=== PATIENT | male | born 1995 | race American Indian/Alaskan Native ===

== ENCOUNTER 2018-09-09 14:06 | Emergency (ER) | payer OTHER ==
[2018-09-09 14:22] VITALS: BP 125/71
--- NOTE | 2018-09-09 15:49 | Emergency Department Report ---
ED ENT HPI - General Chief complaint: Earache Stated complaint: LEFT EAR PAIN Time Seen by Provider: 09/09/18 15:44 Source: patient Mode of arrival: Ambulatory Limitations: No Limitations - History of Present Illness Initial comments: 23 y/o male reports of left ear pain for about a month now has gotten worst. Has taken nothing for pain. MD complaint: ear pain -: days(s) (3) Location: L ear Severity: moderate Quality: sharp Consistency: intermittent Improves with: none Worsens with: movement Associated Symptoms: denies: fever, cough, gum swelling, toothache, pain with swallowing, sore throat, discharge from ear, rhinorrhea - Related Data Previous Rx's Medication Instructions Recorded Last Taken Type Neomy/Polymyx B/Hc (Otic) Soln 4 drops AU TID #1 bottle 09/09/18 Unknown Rx [Cortisporin (Otic) Soln] Allergies Allergy/AdvReac Type Severity Reaction Status Date / Time No Known Allergies Allergy Verified 09/09/18 14:20 ED Dental HPI - General Chief complaint: Earache Stated complaint: LEFT EAR PAIN Time Seen by Provider: 09/09/18 15:44 Source: patient Mode of arrival: Ambulatory Limitations: No Limitations - Related Data Previous Rx's Medication Instructions Recorded Last Taken Type Neomy/Polymyx B/Hc (Otic) Soln 4 drops AU TID #1 bottle 09/09/18 Unknown Rx [Cortisporin (Otic) Soln] Allergies Allergy/AdvReac Type Severity Reaction Status Date / Time No Known Allergies Allergy Verified 09/09/18 14:20 ED Review of Systems ROS: Stated complaint: LEFT EAR PAIN Other details as noted in HPI Comment: All other systems reviewed and negative Constitutional: denies: chills, fever Eyes: denies: eye pain, eye discharge, vision change ENT: denies: ear pain, throat pain Respiratory: denies: cough, shortness of breath, wheezing ED Past Medical Hx - Past Medical History Previous Medical History?: No - Surgical History Past Surgical History?: No - Social History Smoking Status: Never Smoker Substance Use Type: Marijuana - Medications Home Medications: Home Medications Medication Instructions Recorded Confirmed Last Taken Type Neomy/Polymyx B/Hc (Otic) Soln 4 drops AU TID #1 bottle 09/09/18 Unknown Rx [Cortisporin (Otic) Soln] ED Physical Exam - General Limitations: No Limitations General appearance: alert, in no apparent distress - Head Head exam: Present: atraumatic, normocephalic - Eye Eye exam: Present: normal appearance - ENT ENT exam: Present: mucous membranes moist, TM's normal bilaterally - Expanded ENT Exam Expanded TM/Canal exam: Canal Discharge: Left TM, Canal Tenderness: Right TM (tragus tendernes, article pain with movement. ) - Neck Neck exam: Present: normal inspection - Neurological Exam Neurological exam: Present: alert, oriented X3 - Psychiatric Psychiatric exam: Present: normal affect, normal mood - Skin Skin exam: Present: warm, dry, intact, normal color. Absent: rash ED Course Vital Signs 09/09/18 09/09/18 14:15 14:21 Temperature 98.2 F 98.1 F Pulse Rate 99 H 77 Respiratory 16 16 Rate Blood Pressure 125/71 Blood Pressure 157/81 [Right] O2 Sat by Pulse 99 98 Oximetry ED Medical Decision Making - Medical Decision Making patient has been eval in [facility]. Patient appears to have a external otitis media. Critical care attestation.: If time is entered above; I have spent that time in minutes in the direct care of this critically ill patient, excluding procedure time. ED Disposition Clinical Impression: External otitis of left ear Qualifiers: Otitis externa type: unspecified type Chronicity: acute Qualified Code(s): H60.502 - Unspecified acute noninfective otitis externa, left ear Disposition: DC-01 TO HOME OR SELFCARE Is pt being admited?: No Does the pt Need Aspirin: No Condition: Stable Instructions: Otitis Externa (ED) Additional Instructions: Use ear drops as prescribed. Follow up with primary care provider. Prescriptions: Neomy/Polymyx B/Hc (Otic) Soln [Cortisporin (Otic) Soln] 4 drops AU TID #1 bot tle Referrals: [facility] [Outside] - 3-5 Days
== END 2018-09-09 15:55 | disposition home or self-care (01) ==
LOC: ED 14:06
DX: H60.92 Unspecified otitis externa, left ear (principal); F12.10 Cannabis abuse, uncomplicated